=== PATIENT | female | born 1955 | race Caucasian/White ===

== ENCOUNTER 2018-01-05 18:30 | Inpatient (IN) | payer OTHER ==
[~2018-01-05] VITALS: Ht 162.6 cm; Wt 39.8 kg
[~2018-01-05 18:30] MED LIST: FLOMAX0.4 MG PO; ONDANSETRON HCL4 M2 PO; PERCOCET 10-321 EACH PO; XANAX1 MG PO
[2018-01-05 18:33] VITALS: BP 127/63
[2018-01-05] MEDS ORDERED: LISINOPRIL-HCT1 EAC1 PO (18:47)
[2018-01-05] MEDS ORDERED: PEPCID20 MG PO (18:48)
[2018-01-05] MEDS ORDERED: LASIX 40 MG TAB40 M2 PO (18:48)
[2018-01-05 19:18] LABS: HEMATOCRIT 26.3 % (37.0-47.0); HEMOGLOBIN 8.3 gm/dL (12.0-15.0); MCH 25.5 pg (26.0-34.0); MCHC 31.7 g/dL (28.0-37.0); MCV 80.5 fL (80.0-100.0); MPV 7.4 fl. (7.2-11.1); NUCLEATED RBCS 0 /100WBC; PLATELET COUNT* 250 thou/uL (150-400); RBC 3.27 mil/uL (4.20-5.00); WBC 11.4 thou/uL (4.0-11.0)
[2018-01-05 19:38] LABS: ALKALINE PHOSPHATASE 248 U/L (46-116); ANION GAP 13 mmol/L (7-16); BUN 32 mg/dL (7-18); CALCIUM 7.9 mg/dL (8.5-10.1); CHLORIDE 107 mmol/L (98-107); CO2 19 mmol/L (21-32); CREATININE 0.9 mg/dL (0.6-1.3); GLUCOSE 82 mg/dL (70-99); LIPASE 304 U/L (73-393); POTASSIUM 3.5 mmol/L (3.5-5.1); SGOT 45 U/L (15-37); SGPT 17 U/L (30-65); SODIUM 139 mmol/L (136-145); TOTAL BILIRUBIN 0.3 mg/dL (<0.1-1.0); TOTAL PROTEIN 6.5 g/dL (6.4-8.2); TROPONIN-I LEVEL <0.06 ng/mL (<0.06)
[2018-01-05 19:47] LABS: ABSOLUTE EOSINOPHILS 0.1 thou/uL (0.0-0.7); ABSOLUTE LYMPHOCYTES 1.1 thou/uL (0.8-5.3); ABSOLUTE MONOCYTES 0.2 thou/uL (0.0-1.2); ABSOLUTE NEUTROPHILS 9.9 thou/uL (1.6-8.1); ANISOCYTOSIS 1+; HYPOCHROMASIA Occasional; PLATELET ESTIMATE ADEQUATE
[2018-01-05 20:57] LABS: URINE BILIRUBIN NEGATIVE (Negative); URINE BLOOD 1+ (Negative); URINE COLOR YELLOW; URINE GLUCOSE-RANDOM NEGATIVE (Negative); URINE KETONES TRACE (Negative); URINE LEUKOCYTES-REFLEX 1+ (Negative); URINE NITRITE-REFLEX NEGATIVE (Negative); URINE PROTEIN TRACE (Negative); URINE UROBILINOGEN 0.2 E.U./dl (0.2-1.0)
[2018-01-05 21:00] LABS: URINE CLARITY HAZY
[2018-01-05 21:08] LABS: SQUAMOUS 4-10 Moderate /LPF (0-3)
[2018-01-05 21:09] LABS: BACTERIA-REFLEX 1-9 Few /HPF (None Seen); CASTS None Seen /LPF (None Seen); CRYSTALS None Seen /LPF (None Seen); URINE RBC 0-2 Rare /HPF (0-2); URINE WBC-REFLEX >25 Many /HPF (0-5)
[2018-01-05 22:32] VITALS: BP 120/67
[2018-01-05 22:55] VITALS: BP 102/56
[2018-01-06 04:30] LABS: HEMATOCRIT 27.2 % (37.0-47.0); HEMOGLOBIN 8.8 gm/dL (12.0-15.0); MCH 25.8 pg (26.0-34.0); MCHC 32.4 g/dL (28.0-37.0); MCV 79.7 fL (80.0-100.0); MPV 7.6 fl. (7.2-11.1); RBC 3.4 mil/uL (4.20-5.00); RDW-CV 17.6 % (10.5-14.5)
[2018-01-06 04:48] LABS: CALCIUM 7.7 mg/dL (8.5-10.1); CREATININE 0.9 mg/dL (0.6-1.3); MAGNESIUM 1.4 mg/dL (1.8-2.4); POTASSIUM 3.2 mmol/L (3.5-5.1)
[2018-01-06 08:34] VITALS: BP 125/88
--- NOTE | 2018-01-06 13:07 | EKG ---
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 : [id number] Requested By: Smita Centeno Order Number: [id number] MD: Froylan Schwartz Measurements Intervals [place] Rate: 95 P: 86 [place]: 128 QRS: 86 QRSD: 83 T: 47 QT: 367 QTc: 462 Interpretive Statements Sinus tachycardia Ventricular trigeminy Left atrial enlargement Borderline right axis deviation Low voltage, extremity leads Compared to ECG 01/26/2017 12:39:21 No significant changes Electronically Signed On 01-06-2018 13:06:52 CDT by Froylan Schwartz [email or web address] <ELECTRONICALLY SIGNED> By: Brandin Schwartz MD, [facility] 01/06/18 1306 15 15 Brandin Schwartz MD, [facility] /EPI
[2018-01-06 14:54] LABS: CALCIUM 7.9 mg/dL (8.5-10.1); MAGNESIUM 1.3 mg/dL (1.8-2.4); POTASSIUM 3.4 mmol/L (3.5-5.1)
[2018-01-06 16:06] VITALS: BP 154/82
[2018-01-07 01:20] VITALS: BP 127/73
[2018-01-07 01:42] LABS: HEMATOCRIT 26.2 % (37.0-47.0); HEMOGLOBIN 8.4 gm/dL (12.0-15.0); MCH 25.7 pg (26.0-34.0); MCHC 31.9 g/dL (28.0-37.0); MCV 80.6 fL (80.0-100.0); MPV 7.2 fl. (7.2-11.1); RBC 3.25 mil/uL (4.20-5.00); RDW-CV 18.5 % (10.5-14.5)
[2018-01-07 01:51] LABS: ALBUMIN 1.8 g/dL (3.4-5.0); CALCIUM 7.6 mg/dL (8.5-10.1); MAGNESIUM 1.1 mg/dL (1.8-2.4); POTASSIUM 3.6 mmol/L (3.5-5.1); TOTAL BILIRUBIN 0.1 mg/dL (<0.1-1.0)
[2018-01-07 08:55] VITALS: BP 134/72
[2018-01-07 10:52] VITALS: BP 129/75
[2018-01-07 16:00] VITALS: BP 121/70
[2018-01-07 21:35] VITALS: BP 120/58
[2018-01-08 07:55] VITALS: BP 119/82
[2018-01-08 16:00] VITALS: BP 131/77
[2018-01-08 19:35] VITALS: BP 117/76
[2018-01-09 04:50] LABS: HEMATOCRIT 23.6 % (37.0-47.0); HEMOGLOBIN 7.5 gm/dL (12.0-15.0); MCH 25.7 pg (26.0-34.0); MCHC 31.9 g/dL (28.0-37.0); MCV 80.5 fL (80.0-100.0); MPV 7.8 fl. (7.2-11.1); NUCLEATED RBCS 0 /100WBC; PLATELET COUNT* 269 thou/uL (150-400); RBC 2.94 mil/uL (4.20-5.00); RDW-CV 18.4 % (10.5-14.5); WBC 10.4 thou/uL (4.0-11.0)
[2018-01-09 05:01] LABS: ALBUMIN 1.8 g/dL (3.4-5.0); CALCIUM 7.9 mg/dL (8.5-10.1); CREATININE 0.9 mg/dL (0.6-1.3); POTASSIUM 4.1 mmol/L (3.5-5.1); TOTAL BILIRUBIN 0.1 mg/dL (<0.1-1.0); TOTAL PROTEIN 5.5 g/dL (6.4-8.2)
[2018-01-09 05:57] LABS: ABSOLUTE LYMPHOCYTES 0.3 thou/uL (0.8-5.3); ABSOLUTE MONOCYTES 0.3 thou/uL (0.0-1.2); ABSOLUTE NEUTROPHILS 9.8 thou/uL (1.6-8.1); PLATELET ESTIMATE ADEQUATE
[2018-01-09 05:58] LABS: ANISOCYTOSIS 1+
[2018-01-09 05:59] LABS: HYPOCHROMASIA 1+; LARGE PLATELETS OCCASIONAL; OVALOCYTES 1+; POIKILOCYTOSIS 1+
[2018-01-09 08:00] VITALS: BP 132/80
[2018-01-09 16:15] VITALS: BP 134/87
[2018-01-09 19:48] VITALS: BP 113/75
[2018-01-10 04:39] LABS: ABSOLUTE LYMPHOCYTES 0.7 thou/uL (0.8-5.3); ABSOLUTE MONOCYTES 0.5 thou/uL (0.0-1.2); ABSOLUTE NEUTROPHILS 8.8 thou/uL (1.6-8.1); BASOPHILS 0.2 %; EOSINOPHILS 0.5 %; HEMATOCRIT 25.3 % (37.0-47.0); HEMOGLOBIN 8.3 gm/dL (12.0-15.0); LYMPHOCYTES 7.2 %; MCH 25.9 pg (26.0-34.0); MCHC 32.7 g/dL (28.0-37.0); MCV 79.3 fL (80.0-100.0); MONOCYTES 5.2 %; MPV 7.7 fl. (7.2-11.1); NUCLEATED RBCS 0 /100WBC; PLATELET COUNT* 311 thou/uL (150-400); POLYS 86.9 %; RBC 3.19 mil/uL (4.20-5.00); RDW-CV 18.1 % (10.5-14.5); WBC 10.1 thou/uL (4.0-11.0)
[2018-01-10 05:08] LABS: ALBUMIN 1.6 g/dL (3.4-5.0); CALCIUM 7.6 mg/dL (8.5-10.1); CREATININE 0.9 mg/dL (0.6-1.3); POTASSIUM 3.7 mmol/L (3.5-5.1); TOTAL BILIRUBIN 0.2 mg/dL (<0.1-1.0); TOTAL PROTEIN 5.8 g/dL (6.4-8.2)
[2018-01-10 07:55] VITALS: BP 125/78
[2018-01-10 15:51] VITALS: BP 124/81
[2018-01-10 20:20] VITALS: BP 121/81
[2018-01-11 04:47] LABS: ABSOLUTE MONOCYTES 0.4 thou/uL (0.0-1.2); ABSOLUTE NEUTROPHILS 7.5 thou/uL (1.6-8.1); BASOPHILS 0.3 %; EOSINOPHILS 0.3 %; HEMATOCRIT 24.3 % (37.0-47.0); HEMOGLOBIN 7.8 gm/dL (12.0-15.0); LYMPHOCYTES 11.5 %; MCH 25.5 pg (26.0-34.0); MCHC 32.2 g/dL (28.0-37.0); MCV 79.3 fL (80.0-100.0); MONOCYTES 4.6 %; MPV 7.6 fl. (7.2-11.1); NUCLEATED RBCS 0 /100WBC; PLATELET COUNT* 302 thou/uL (150-400); POLYS 83.3 %; RBC 3.07 mil/uL (4.20-5.00); RDW-CV 18.3 % (10.5-14.5); WBC 9.1 thou/uL (4.0-11.0)
[2018-01-11 05:19] LABS: ALBUMIN 1.6 g/dL (3.4-5.0); CALCIUM 7.6 mg/dL (8.5-10.1); CREATININE 0.8 mg/dL (0.6-1.3); POTASSIUM 3.5 mmol/L (3.5-5.1); TOTAL BILIRUBIN 0.2 mg/dL (<0.1-1.0); TOTAL PROTEIN 5.8 g/dL (6.4-8.2)
[2018-01-11 09:00] VITALS: BP 107/73
[2018-01-11] MEDS ORDERED: LEVAQUIN 500 M500 M2 PO (14:47)
[2018-01-11] MEDS ORDERED: PERCOCET 10-321 EACH PO (14:48)
[2018-01-11 14:52] VITALS: BP 107/70
[2018-01-11 14:58] VITALS: BP 107/70
[2018-01-11 16:13] VITALS: BP 107/70
--- NOTE | 2018-01-14 15:07 | CON ---
[address] [address] CONSULTATION Name: JT MILLER Room: [address] IN M.R.#: [id number] Admission: 01/05/18 Attend Phys: Agustin Lam, Discharge: 01/11/18 Date of : 51 Report #: [id number] THIS REPORT FOR: //name// CC: Edgar Lam DICTATED BY: Cecelia Cam [facility] DATE OF SERVICE: 01/07/2018 Please note at the time of this dictation, the patient was seen and physically examined by myself. REASON FOR CONSULTATION: History of colon cancer, weakness. HISTORY OF PRESENT ILLNESS: This 62-year-old female presented to the ER with generalized fatigue and weakness. She states she has been feeling like this for the last 2 weeks; however, she has had a normal appetite and denies any nausea or vomiting, just feeling weak. She has had a little bit of abdominal discomfort and she states that she had difficulty caring for herself at home. She states she has had a little bit more increase in her stooling and it has been more liquid than normal. She has had a colostomy tube since 2013 where she was diagnosed with colon cancer and the patient states that she was at [facility] approximately 3 weeks ago with a small-bowel obstruction as well. The patient has had most of her care done over at [facility] for the last couple of years. The patient was seen by us in 2012, she underwent , she had a small hiatal hernia with some gastritis. 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 She was sent to [facility] and apparently had a resection back in 2013 for the same. She has undergone some radiation. She states she is undergoing chemo, but has not been able to do that for a while because of her small bowel obstructions. It is noted also that she has mets to her liver at this time. The patient is not a very good historian in regards to her overall health. ALLERGIES: IODINE and BEE STINGS. MEDICATIONS: From home include lisinopril, Pepcid, Lasix, Xanax and Percocet. PAST MEDICAL HISTORY: Colon cancer and colostomy with mets to her liver. PAST SURGICAL HISTORY: Colon resection and colostomy. FAMILY HISTORY: [place] [address] CONSULTATION Name: JT MILLER Room: [address]#: [id number] Admission: 01/05/18 Attend Phys: Agustin Lam, Discharge: 01/11/18 Date of : 51 Report #: [id number] SOCIAL HISTORY: Past alcohol use and denies any tobacco or illegal drug use at this time. REVIEW OF SYSTEMS: Twelve-point review of systems is essentially negative except what is mentioned in the HPI. PHYSICAL EXAMINATION: VITAL SIGNS: Temperature 36.6, pulse 119, respirations 16, blood pressure 134/72. HEART: Regular rate and rhythm, tachycardic. LUNGS: Diminished. ABDOMEN: Soft, positive bowel sounds in all 4 quadrants with a colostomy present with some light brown stool noted. LABORATORY DATA: Hemoglobin is 8.4, hematocrit 26.2, white count is 11, platelets 278. Sodium 141, potassium 3.6, chloride 112, CO2 18, BUN is 19, creatinine is 1, GFR is 56. Glucose is 108, total bilirubin 0.1, alkaline phosphatase is 225, ALT is 16 and AST is 41. CT of the abdomen and pelvis demonstrates multiple fluid filled loops of small bowel seen throughout the abdomen with stool seen throughout the colon in the left lower quadrant suggestive of an adynamic ileus, diffuse, mild to moderate ascites, multiple and large retroperitoneal lymph nodes consistent with nodular mets, probable presacral mass, low attenuation lesions noted in the liver consistent with mets. She has got some pulmonary nodules, possibly with mets, a 2.1 cm soft tissue mass along the anterior abdominal wall that is noted to probably represent mets as well. IMPRESSION: 1. Small-bowel obstruction, recurrent in [facility] 3 weeks ago. 2. History of colon cancer with resection and metastasis to liver. 3. Fatigue. PLAN: 1. Need to obtain records from [facility] and Dr. Gomes to figure out where her care is going at this time with her recurrent small bowel obstructions. 2. We will obtain a KUB today. 3. Further recommendations to be made after the KUB has been done and records have been obtained. Thank you for allowing us to participate in this patient's care. Please do not hesitate to call with any questions in regard to this consult. ADDENDUM: I have personally seen and examined the patient and reviewed the labs and imaging studies. The patient with recurrent small-bowel obstruction who has [address] [address] CONSULTATION Name: JT MILLER Room: [address] IN .R.#: [id number] Admission: 01/05/18 Attend Phys: Agustin SilviaAdalid eRyesflorindabeatriz, Discharge: 01/11/18 Date of : 51 Report #: [id number] been recently hospitalized in [facility]. She has history of colon cancer with mets to liver and colostomy. The KUB is suggestive of partial small-bowel obstruction with dilated loops of small bowel measuring 4.7 cm. We will repeat the KUB and see if there is any improvement of intestinal dilation. Meanwhile, we will obtain records from [facility]. <ELECTRONICALLY SIGNED> By: Tonya Gann MD 01/14/18 1507 1106 [id number] Gann MD /nt
== END 2018-01-11 16:12 | disposition home or self-care (01) | DRG 70 ==
LOC: M.ERS 18:30 → M.TBA-ER 21:26 → M.3W 21:26
PROVIDERS: Internal Medicine; Nurse Practitioner Family; ADMIT Family Medicine
DX: G93.40 Encephalopathy, unspecified (principal); E43 Unspecified severe protein-calorie malnutrition; N39.0 Urinary tract infection, site not specified; K56.609 Unspecified intestinal obstruction, unspecified as to partial versus complete obstruction; E87.2 Acidosis; Z68.1 Body mass index [BMI] 19.9 or less, adult; E86.0 Dehydration; D64.9 Anemia, unspecified; G89.29 Other chronic pain; E87.6 Hypokalemia; E83.42 Hypomagnesemia; R33.9 Retention of urine, unspecified; Z85.038 Personal history of other malignant neoplasm of large intestine; Z93.3 Colostomy status; Z88.8 Allergy status to other drugs, medicaments and biological substances; Z91.041 Radiographic dye allergy status; Z87.891 Personal history of nicotine dependence; Z79.899 Other long term (current) drug therapy